=== PATIENT | male | born 1985 | race Caucasian/White ===

== ENCOUNTER 2020-02-20 15:56 | Emergency (ER) | payer OTHER ==
[~2020-02-20] VITALS: Ht 185.4 cm; Wt 74.8 kg
== END 2020-02-20 17:43 | disposition home or self-care (01) ==
LOC: ED 15:56
DX: S63.92XA Sprain of unspecified part of left wrist and hand, initial encounter (principal); F17.200 Nicotine dependence, unspecified, uncomplicated; W18.30XA Fall on same level, unspecified, initial encounter
CPT/HCPCS: 29125; 73110; 73130; 99283-25

== ENCOUNTER 2020-02-20 22:33 | Emergency (ER) | payer OTHER ==
[~2020-02-20] VITALS: Ht 185.4 cm; Wt 74.8 kg
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
--- OUTSIDE RECORDS SUMMARY | ~2020-02-20 | XMS | Clinical Summary ---
Demographics + + + | Address | [address] | | | [place] [address] | + + + | Home Phone | | + + + | Preferred Language | Unknown | + + + | Marital Status | Single | + + + | Shinto Affiliation | 1013 | + + + | Race | Unknown | + + + | Ethnic Group | Unknown | + + + Author + + + | Author | [facility] | | | and [place] | + + + | Organization | [facility] | | | and [place] | + + + | Address | Unknown | + + + | Phone | Unavailable | + + + Support + + + + + | Name | Relationship | Address | Phone | + + + + + | Jourdan Sandoval | ECON | [address] | | | | | [place] [address] | | + + + + + Care Team Providers + +------+ + | Care Cake Tester Name | Role | Phone | + +------+ + | No, Physician | PCP | Unavailable | + +------+ + Allergies Not on File Medications Not on file Active Problems Not on file Social History + +-------+ +--------+------+ | Tobacco [...] recent travel history available. 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
--- OUTSIDE RECORDS SUMMARY | ~2020-02-20 | XMS | Encounter Summary ---
Demographics + + + | Address | [address] | | | [place] [address] | + + + | Home Phone | | + + + | Preferred Language | Unknown | + + + | Marital Status | Single | + + + | Shinto Affiliation | 1013 | + + + | Race | Unknown | + + + | Ethnic Group | Unknown | + + + Author + + + | Author | [facility] | | | and [place] | + + + | Organization | [facility] | | | and [place] | + + + | Address | Unknown | + + + | Phone | Unavailable | + + + Support + + + + + | Name | Relationship | Address | Phone | + + + + + | Jourdan Sandoval | ECON | [address] | | | | | [place] [address] | | + + + + + Care Team Providers + +------+ + | Care Registration Clerk Name | Role | Phone | + +------+ + PCP | Unavailable | + +------+ + Encounter Details +--------+ + + + + | Date | Type | Department | Care Team | Description | +--------+ + + + + | 12/29/ | Hospital | [facility] | Denise Roca | | | 2012 | Encounter | MED CTR EMERGENCY | [address] | | | | | CENTER [address] | [facility], | | | | | [place] | [place] [address] | | | | | [address] | [phone] | | | | | [phone] | | | +--------+ + + + [...] Performed At | + + + | [facility] | [place] | | Department [address] [place] | [facility] | | [ rep [address]] [ rep [facility] | | st zip] Signed | - IMAGING | | | | | Patient Name: RAMÍREZ SANDOVAL Physician: | | | POOLR.01 : 1985 Age: 27 Sex: M Unit #: [id number] | | | Exam Date: 12/29/12 Location: ER | | | Report #: [id number] Page: | | | %(RAD)RES..mtdd.print.filter("pg") of %(RAD) | | | RES..mtdd.print.filter("tpg") | | | | | | Accession Number: [id number] | | | RIGHT FINGER THREE VIEW [...] Transcribed | | | Date/Time: 12/30/2012 07:54 Electrical Wirer: | | | <<Signature on File>> | | | Gilmar | | | Charleen Jon MD12/30/12 0836 <Electronically signed by Gilmar Jaimes | Fiona Jon MD> Gilmar Jon MD 12/30/12 0740 | | | Electrical Wirer: Garcia Lprfclzdpjvcv96/04/13 0754 | | | Denise Roca MD | | + + + + + + + + | Performing | Address | City/State/Zipcode | Phone Number | | Organization | | | | + + + + + | [facility] | [address] | [place], [place] | [phone] | | [facility] | | [address] | | | - IMAGING | | | | + + + + + XR Ankle Right 3 + Vw (12/30/2012 7:38 AM PDT) + + | Specimen | + + | | + + + + + | Narrative | Performed At | + + + | [facility] | [place] | | Department [address] [facility] [place] | [facility] | | [ rep ct [address]] [ rep ct [facility] | | st zip] Signed | - IMAGING | | | | | Patient Name: RAMÍREZ SANDOVAL Physician: | | | POOLR.01 : 1985 Age: 27 Sex: M Unit #: [id number] | | | Exam Date: 12/29/12 Location: ER | | | Report #: [id number] Page: | | | %(RAD)RES..mtdd.print.filter("pg") of %(RAD) | | | RES..mtdd.print.filter("tpg") | | | | | | Accession Number: [id number] | | | RIGHT ANKLE THREE VIEW [...] Transcribed Date/Time: | | | 12/30/2012 07:50 Electrical Wirer: CJ | | | <<Signature on File>> | | | Gilmar | | | Charleen Jon MD12/30/12 0832 <Electronically signed by Gilmar Jon MD> Gilmar Jon MD 12/30/12 0738 | | | Electrical Wirer: Garcia Jkfvcnemittks92/04/13 0750 | | | Denise Roca MD | | + + + + + + + + | Performing | Address | City/State/Zipcode | Phone Number | | Organization | | | | + + + + + | [facility] | [address] | [place] | [phone] | | [facility] | | [address] | | | - IMAGING | | | | + + + + + documented in this encounter Visit Diagnoses Not on filedocumented in this encounter
--- OUTSIDE RECORDS SUMMARY | ~2020-02-20 | XMS | Clinical Summary ---
Demographics + + + | Address | [address] | | | [place] [address] | + + + | Home Phone | | + + + | Preferred Language | Unknown | + + + | Marital Status | Single | + + + | Adventist Affiliation | 1013 | + + + | Race | Unknown | + + + | Ethnic Group | Unknown | + + + Author + + + | Author | [facility] | | | and [place] | + + + | Organization | 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
--- OUTSIDE RECORDS SUMMARY | 2020-02-20 22:36 | XMS ---
PreManage Notification: RAMÍREZ ROE Security It Coordinator Events No recent Security Events currently on file CRITERIA MET - [facility] - 2 Visits in 30 Days CARE PROVIDERS There are no care providers on record at this time. Kenneth has no Care Guidelines for this patient. [place] [facility]12 MO.) [facility] NOTE: Visits indicate total known visits. ED/C VISIT TRACKING (12 MO.) 02/20/2020 22:34 [facility] [place] TYPE: Emergency COMPLAINT: - WRIST INJURY/PAIN 02/20/2020 15:58 [facility] [place] TYPE: Emergency COMPLAINT: - LEFT HAND PAIN INPATIENT VISIT TRACKING (12 MO.) No inpatient visits to display in this time frame [email or web address]
== END 2020-02-20 23:14 | disposition home or self-care (01) ==
LOC: ED 22:33
DX: M25.532 Pain in left wrist (principal)

== ENCOUNTER 2024-11-11 15:23 | Emergency (ER) | payer OTHER ==
[~2024-11-11] VITALS: Ht 185.4 cm; Wt 78.0 kg
[2024-11-11] MEDS ORDERED: LIDOCAINE & ANTACID 35 ML BTL PO ONE (16:00)
[2024-11-11 16:01] LABS: BASOPHILS 0.7 % (0-2); EOSINOPHILS 1.2 % (0-6); HEMATOCRIT 42.8 % (35.0-50.0); HEMOGLOBIN 14.6 g/dL (12.0-18.0); LYMPHOCYTES 12.9 % (24-44); MCH 32.2 (27-36); MCV 94.8 fl (81-99); NEUTROPHILS 78.2 % (39-80); PLATELET COUNT 493 K/uL (140-440); RBC 4.52 M/ul (4.3-5.7); RDW 13.6 (10.5-15.0)
[2024-11-11 16:20] LABS: ALBUMIN 3.7 g/dL (3.4-5.0); ALBUMIN/GLOBULIN RATIO 0.97 (1.1-2.4); ALKALINE PHOSPHATASE 151 U/L (46-116); ALT (SGPT) 21 U/L (14-59); ANION GAP 13.7 (7-21); AST (SGOT) 18 U/L (15-37); BILIRUBIN, TOTAL 0.8 mg/dL (0.2-1.0); BUN/CREATININE RATIO 8.82 (6.0-28.6); CALCIUM 9.2 mg/dL (8.5-10.1); CARBON DIOXIDE 28 mmol/L (21-32); CHLORIDE 100 mmol/L (98-107); CREATININE, SERUM 0.68 mg/dL (0.70-1.30); GLOMERULAR FILTRATION RATE,EST 121 mL/min (>60); POTASSIUM 3.7 mmol/L (3.5-5.1); PROTEIN, TOTAL 7.5 g/dL (6.4-8.2); UREA NITROGEN 6 mg/dL (7-18)
[2024-11-11] MEDS ORDERED: SODIUM CHLORIDE 0.9% 1,000 ML IV PRN (16:45)
[2024-11-11] MEDS ORDERED: MORPHINE SULFATE 4 MG/ML VIAL IV ONE (16:45)
[2024-11-11] MEDS ORDERED: HYDROCODONE/APAP 10/325 1 TAB PO ONE (18:00)
[2024-11-11 18:21] VITALS: BP 146/93
== END 2024-11-11 18:22 | disposition home or self-care (01) ==
LOC: ED 15:23
PROVIDERS: Emergency Medicine
DX: K85.90 Acute pancreatitis without necrosis or infection, unspecified (principal); K86.89 Other specified diseases of pancreas; F17.210 Nicotine dependence, cigarettes, uncomplicated; Z79.899 Other long term (current) drug therapy
CPT/HCPCS: 36415; 71045; 76705; 80053; 83690; 84484; 85025; 93005; 93010; 96374; 99285-25; A9270; G0480; J2270; J7030

== ENCOUNTER 2024-12-26 10:16 | Emergency (ER) | payer OTHER ==
[~2024-12-26] VITALS: Ht 185.4 cm; Wt 75.5 kg
[~2024-12-26 10:16] MED LIST: DOXYCYCLINE HY100 M3 PO; GABAPENTIN300 MG PO; HYDROCODON-ACE1 EA10 PO; METRONIDAZOLE60 GM TOP; ONDANSETRON ODT4 MG PO; PRAZOSIN HCL1 MG PO
[2024-12-26] MEDS ORDERED: ALBUTEROL/IPRATROPIUM 3 ML NEB INH PRN (16:00)
[2024-12-26 16:26] LABS: BASOPHILS 0.7 % (0-2); EOSINOPHILS 2.3 % (0-6); HEMATOCRIT 50.1 % (35.0-50.0); HEMOGLOBIN 16.7 g/dL (12.0-18.0); LYMPHOCYTES 9.4 % (24-44); MCHC 33.4 g/dl (30-36); MCV 89.8 fl (81-99); MONOCYTES 8.7 % (0-12); NEUTROPHILS 78.9 % (39-80); PLATELET COUNT 495 K/uL (140-440); RBC 5.58 M/ul (4.3-5.7); RDW 14.3 (10.5-15.0)
[2024-12-26] MEDS ORDERED: FLUOXETINE HCL10 MG PO (16:29)
[2024-12-26] MEDS ORDERED: ARIPIPRAZOLE2 MG (16:30)
[2024-12-26 16:47] LABS: ALBUMIN 3.6 g/dL (3.4-5.0); ALBUMIN/GLOBULIN RATIO 0.92 (1.1-2.4); ANION GAP 22.4 (7-21); BILIRUBIN, TOTAL 0.9 mg/dL (0.2-1.0); CALCIUM 9.4 mg/dL (8.5-10.1); CREATININE, SERUM 0.7 mg/dL (0.70-1.30); MAGNESIUM 1.8 mg/dL (1.8-2.4); POTASSIUM 4.4 mmol/L (3.5-5.1); PROTEIN, TOTAL 7.5 g/dL (6.4-8.2)
[2024-12-26] MEDS ORDERED: HYDROmorphone HCL 1 MG/ML SYR IV ONE (19:30)
[2024-12-26] MEDS ORDERED: MIDAZOLAM HCL 2 MG/2 ML VIAL IV ONE ×2 (19:30→20:00)
[2024-12-26] MEDS ORDERED: MORPHINE SULFATE 4 MG/ML VIAL IV ONE (19:45)
[2024-12-26] MEDS ORDERED: CEFTRIAXONE SODIUM 1 GM in SODIUM CHLORIDE 0.9% 100 ML IV SCH (20:00)
[2024-12-26] MEDS ORDERED: ondansetron HCL 4 MG/2 ML VIAL IV PRN (20:00)
[2024-12-26] MEDS ORDERED: ACETAMINOPHEN 325 MG TAB PO PRN (20:00)
[2024-12-26] MEDS ORDERED: AZITHROMYCIN 250 MG TAB PO SCH (20:00)
[2024-12-26 20:23] LABS: BASE EXCESS, BLOOD GAS -7.2 mmol/L (-2-2); O2 SATURATION, BLOOD GAS 65.1 % (95.0-100.0); OXYGEN RECEIVED, BLOOD GAS 100%; PCO2, BLOOD GAS 47.2 mmHg (35-45); PH, BLOOD GAS 7.24 (7.35-7.45); PO2, BLOOD GAS 41 mmHg (80-100); TOTAL CO2, BLOOD GAS 21.4
[2024-12-26] MEDS ORDERED: propofoL 100 ML IV ONE (20:28)
[2024-12-26] MEDS ORDERED: FENTANYL CITRATE-0.9 % NACL/PF 100 ML IV SCH (20:55)
[2024-12-26] MEDS ORDERED: FENTANYL CITRATE-0.9 % NACL/PF 100 ML IV ONE (20:56)
[2024-12-26] MEDS ORDERED: MELATONIN 3 MG TAB PO PRN (21:00)
[2024-12-26 21:28] LABS: PH, BODY FLUID 7.48
[2024-12-26 21:40] LABS: BASE EXCESS, BLOOD GAS -11.9 mmol/L (-2-2); HCO3, BLOOD GAS 18.1 mmol/L (22-26); O2 SATURATION, BLOOD GAS 99.4 % (95.0-100.0); OXYGEN RECEIVED, BLOOD GAS 100%; PCO2, BLOOD GAS 57.6 mmHg (35-45); PH, BLOOD GAS 7.11 (7.35-7.45); PO2, BLOOD GAS 178 mmHg (80-100); TOTAL CO2, BLOOD GAS 19.8
[2024-12-26 21:41] LABS: BASOPHILS 0.7 % (0-2); EOSINOPHILS 1.3 % (0-6); HEMATOCRIT 52.9 % (35.0-50.0); HEMOGLOBIN 17.4 g/dL (12.0-18.0); LYMPHOCYTES 7.6 % (24-44); MCHC 32.9 g/dl (30-36); MCV 91.1 fl (81-99); MONOCYTES 6.6 % (0-12); NEUTROPHILS 83.8 % (39-80); PLATELET COUNT 471 K/uL (140-440); RDW 14.6 (10.5-15.0)
[2024-12-26] MEDS ORDERED: methylPREDNISolone SOD SUCC 125 MG/2 ML VIAL IV ONE (21:45)
[2024-12-26] MEDS ORDERED: propofoL 100 ML IV SCH (21:45)
[2024-12-26 21:50] LABS: ALBUMIN 2.8 g/dL (3.4-5.0); ALBUMIN/GLOBULIN RATIO 0.8 (1.1-2.4); ANION GAP 19.1 (7-21); BILIRUBIN, TOTAL 0.6 mg/dL (0.2-1.0); BUN/CREATININE RATIO 13.2 (6.0-28.6); CALCIUM 8.1 mg/dL (8.5-10.1); CREATININE, SERUM 0.53 mg/dL (0.70-1.30); POTASSIUM 4.1 mmol/L (3.5-5.1); PROTEIN, TOTAL 6.3 g/dL (6.4-8.2)
[2024-12-26] MEDS ORDERED: OCTREOTIDE ACETATE 100 MCG/ML VIAL ONE (22:03)
[2024-12-26] MEDS ORDERED: ACETAMINOPHEN 1,000 MG/100 ML VIAL IV ONE (22:15)
[2024-12-26] MEDS ORDERED: OCTREOTIDE ACETATE 100 MCG/ML VIAL SUB-Q ONE (22:15)
[2024-12-26 22:25] LABS: MONONUCLEAR CELLS, BODY FLUID 86; PMNS, BODY FLUID 14; RBC, BODY FLUID 55500; SOURCE, BODY FLUID Pleural fluid; WBC, BODY FLUID 500
[2024-12-26] MEDS ORDERED: DEXTROSE 5% IV SCH (22:45)
[2024-12-26] MEDS ORDERED: ROCURONIUM BROMIDE IV SCH (22:45)
[2024-12-26] MEDS ORDERED: PIPERACILLIN/TAZOBACTAM 3.375 GM in SODIUM CHLORIDE 0.9% 100 ML IV ONE (23:15)
[2024-12-27] MEDS ORDERED: LACTATED RINGER'S 1,000 ML IV ONE
[2024-12-27] MEDS ORDERED: NOREPINEPHRINE BITARTRATE 250 ML IV ONE (00:13)
[2024-12-27] MEDS ORDERED: NOREPINEPHRINE BITARTRATE 250 ML IV SCH (00:30)
[2024-12-27 00:39] LABS: INFLUENZA B NAA NEGATIVE (NEGATIVE); RESPIRATORY SYNCYTIAL VIR NAA NEGATIVE (NEGATIVE)
[2024-12-27] MEDS ORDERED: ETOMIDATE 40 MG/20 ML VIAL IV ONE (00:45)
[2024-12-27] MEDS ORDERED: ROCURONIUM BROMIDE 50 MG/5 ML SYR IV ONE (00:45)
[2024-12-27 01:00] LABS: BASE EXCESS, BLOOD GAS -12.9 mmol/L (-2-2); HCO3, BLOOD GAS 18.5 mmol/L (22-26); O2 SATURATION, BLOOD GAS 95.2 % (95.0-100.0); PCO2, BLOOD GAS 63.2 mmHg (35-45); PH, BLOOD GAS 7.08 (7.35-7.45); PO2, BLOOD GAS 96 mmHg (80-100); TOTAL CO2, BLOOD GAS 20.5
[2024-12-27 01:01] LABS: OXYGEN RECEIVED, BLOOD GAS 100%
[2024-12-27] MEDS ORDERED: VANCOMYCIN HCL IV ONE (01:15)
[2024-12-27] MEDS ORDERED: VANCOMYCIN HCL 2,750 MG in DEXTROSE 5% 500 ML IV ONE (01:15)
[2024-12-27] MEDS ORDERED: DEXTROSE 5% IV ONE (01:15)
[2024-12-27 03:05] LABS: BASE EXCESS, BLOOD GAS -14.1 mmol/L (-2-2); HCO3, BLOOD GAS 17.2 mmol/L (22-26); O2 SATURATION, BLOOD GAS 88.3 % (95.0-100.0); OXYGEN RECEIVED, BLOOD GAS 100%; PCO2, BLOOD GAS 60.4 mmHg (35-45); PH, BLOOD GAS 7.07 (7.35-7.45); PO2, BLOOD GAS 71 mmHg (80-100)
[2024-12-27 04:08] LABS: ALBUMIN/GLOBULIN RATIO 0.63 (1.1-2.4); ANION GAP 17.8 (7-21); BILIRUBIN, TOTAL 0.6 mg/dL (0.2-1.0); BUN/CREATININE RATIO 8.59 (6.0-28.6); CALCIUM 7.2 mg/dL (8.5-10.1); CREATININE, SERUM 1.28 mg/dL (0.70-1.30); PROTEIN, TOTAL 5.2 g/dL (6.4-8.2)
[2024-12-27 04:13] LABS: POTASSIUM 6.8 mmol/L (3.5-5.1)
[2024-12-27] MEDS ORDERED: ALBUTEROL SULFATE 0.5% 2.5 MG/0.5 ML VIAL INH ONE (04:15)
[2024-12-27] MEDS ORDERED: CALCIUM GLUCONATE 1,000 MG/10 ML VIAL IV ONE (04:15)
[2024-12-27] MEDS ORDERED: DEXTROSE 50% 50 ML SYR IV ONE (04:15)
[2024-12-27] MEDS ORDERED: Insulin Regular, Human 100 UNIT/ML ML IV ONE (04:15)
[2024-12-27] MEDS ORDERED: SODIUM BICARBONATE 150 MEQ in DEXTROSE 5% 1,000 ML IV SCH (04:30)
[2024-12-27] MEDS ORDERED: SODIUM CHLORIDE 0.9% 1,000 ML IV PRN (04:30)
[2024-12-27 06:26] LABS: BASE EXCESS, BLOOD GAS -14.2 mmol/L (-2-2); HCO3, BLOOD GAS 18.6 mmol/L (22-26); O2 SATURATION, BLOOD GAS 83.3 % (95.0-100.0); PCO2, BLOOD GAS 71.3 mmHg (35-45); PH, BLOOD GAS 7.02 (7.35-7.45); TOTAL CO2, BLOOD GAS 20.8
[2024-12-27] MEDS ORDERED: PIPERACILLIN/TAZOBACTAM 3.375 GM in SODIUM CHLORIDE 0.9% 100 ML IV ONE (06:30)
[2024-12-27] MEDS ORDERED: methylPREDNISolone SOD SUCC 125 MG/2 ML VIAL IV ONE (06:30)
[2024-12-27 06:57] LABS: RDW 15.1 (10.5-15.0)
[2024-12-27 07:01] LABS: HEMATOCRIT 55.6 % (35.0-50.0); HEMOGLOBIN 17.5 g/dL (12.0-18.0); MCH 29.3 (27-36); MCHC 31.4 g/dl (30-36); MCV 93.3 fl (81-99); PLATELET COUNT 393 K/uL (140-440); RBC 5.96 M/ul (4.3-5.7)
[2024-12-27 07:08] LABS: ALBUMIN 1.9 g/dL (3.4-5.0); ALBUMIN/GLOBULIN RATIO 0.56 (1.1-2.4); ANION GAP 13.5 (7-21); BILIRUBIN, TOTAL 0.4 mg/dL (0.2-1.0); BUN/CREATININE RATIO 8.52 (6.0-28.6); CREATININE, SERUM 1.29 mg/dL (0.70-1.30); MAGNESIUM 1.7 mg/dL (1.8-2.4); PHOSPHORUS, INORGANIC 6.5 mg/dL (2.5-4.9); POTASSIUM 5.5 mmol/L (3.5-5.1); PROTEIN, TOTAL 5.3 g/dL (6.4-8.2)
[2024-12-27 07:19] LABS: BANDS, MANUAL DIFF 4; LYMPHOCYTES, MANUAL DIFF 2; MONOCYTES, MANUAL DIFF 1; NEUTROPHILS, MANUAL DIFF 93
[2024-12-27] MEDS ORDERED: ALBUTEROL/IPRATROPIUM 3 ML NEB INH ONE (07:45)
[2024-12-27 08:47] LABS: BASE EXCESS, BLOOD GAS -12.1 mmol/L (-2-2); HCO3, BLOOD GAS 19.4 mmol/L (22-26); O2 SATURATION, BLOOD GAS 86.9 % (95.0-100.0); PCO2, BLOOD GAS 67.2 mmHg (35-45); PH, BLOOD GAS 7.07 (7.35-7.45); TOTAL CO2, BLOOD GAS 21.5
[2024-12-27] MEDS ORDERED: INSULIN REGULAR IN 0.9 % NACL 100 ML IV SCH (09:00)
[2024-12-27 10:18] VITALS: BP 100/74
[2024-12-27] MEDS ORDERED: PHARMACY RENAL DOSE ADJUSTMENT 1 DOSE MISC PO SCH (12:00)
--- NOTE | 2024-12-27 12:15 | EKG ---
[facility] [address] [facility] [place], [place] [address] Signed Sinus tachycardia Otherwise normal ECG When compared with ECG of 11-NOV-2024 15:28, No significant change was found Confirmed by Ousmane Heard DO ([id number]) on 12/27/2024 12:15:29 PM Electronically Signed By: OUSMANE HEARD DO 12/27/24 1215 PATIENT NAME: RAMÍREZ ROE LORENE Electrocardiogram DATE OF : [birth year] PHYSICIAN: OUSMANE HEARD DO REPORT #: [id number] REPORT IS CONFIDENTIAL AND NOT TO BE RELEASED WITHOUT AUTHORIZATION
--- NOTE | 2024-12-27 12:16 | EKG ---
[facility] [address] [facility] [place], [place] [address] Signed Sinus tachycardia Left ventricular hypertrophy with repolarization abnormality ( Ivonne Cohn ) Cannot rule out Septal infarct , age undetermined Abnormal ECG No previous ECGs available Confirmed by Ousmane Heard DO ([id number]) on 12/27/2024 12:16:05 PM Electronically Signed By: OUSMANE HEARD DO 12/27/24 1216 PATIENT NAME: RAMÍREZ ROE LORENE Electrocardiogram DATE OF : [birth year] PHYSICIAN: OUSMANE HEARD DO REPORT #: [id number] REPORT IS CONFIDENTIAL AND NOT TO BE RELEASED WITHOUT AUTHORIZATION
[2024-12-28 11:02] LABS: ADENOSINE DEAMINASE,PLEURAL FL 10 U/L (0-30)
[2024-12-28 11:13] LABS: AMYLASE FLUID SOURCE Pleural fluid (()); AMYLASE, BODY FLUID 19796 U/L (()); GLUCOSE FLUID SOURCE Pleural fluid (()); GLUCOSE,BODY FLUID 63 mg/dL (()); LACTATE DEHYDROGENASE TOTAL,BF 537 U/L (()); LDH FLUID SOURCE Pleural fluid (()); TOTAL PROTEIN FLUID SOURCE Pleural fluid (()); TOTAL PROTEIN, BODY FLUID 3.4 g/dL (())
[2024-12-28 13:12] LABS: OSMOLALITY 283 mOsm/kg (280-303)
== END 2024-12-27 09:25 | disposition short-term general hospital (02) ==
LOC: ED 10:16
PROVIDERS: Emergency Medicine; Internal Medicine; Student in an Organized Health Care Education/Training Program
DX: J96.90 Respiratory failure, unspecified, unspecified whether with hypoxia or hypercapnia (principal); J90 Pleural effusion, not elsewhere classified; J18.9 Pneumonia, unspecified organism; A41.9 Sepsis, unspecified organism; R65.20 Severe sepsis without septic shock; F17.200 Nicotine dependence, unspecified, uncomplicated
CPT/HCPCS: 31500; 32554; 36415; 36556; 36600; 36620; 71045; 71250; 71260; 74178; 80053; 82150; 82550; 82803; 82945; 83605; 83690; 83735; 83880; 83930; 83986; 84100; 84157; 84478; 84484; 85025; 85060; 87070; 87075; 87205; 87502; 89051; 93005; 93010; 94640; 94799; 99285-25; A4311; J0131; J0612; J1171; J1815; J2250; J2270; J2354-JA; J2543; J2704; J2919; J3010; J3370; J3490; J7030; J7060; J7070; J7121; Q9967; U0002

== ENCOUNTER 2025-04-01 18:05 | Emergency (ER) | payer OTHER ==
[~2025-04-01] VITALS: Ht 185.4 cm; Wt 82.2 kg
[~2025-04-01 18:05] MED LIST changes: +ARIPIPRAZOLE2 MG; +FLUOXETINE HCL10 MG PO
[2025-04-01] MEDS ORDERED: ELIQUIS5 MG PO (18:24)
[2025-04-01] MEDS ORDERED: ACETAMINOPHEN 500 MG TAB PO ONE (19:15)
[2025-04-01 19:36] VITALS: BP 125/77
== END 2025-04-01 19:38 | disposition home or self-care (01) ==
LOC: ED 18:05
DX: M23.92 Unspecified internal derangement of left knee (principal); F17.200 Nicotine dependence, unspecified, uncomplicated; Z88.8 Allergy status to other drugs, medicaments and biological substances; Z79.899 Other long term (current) drug therapy; Z79.01 Long term (current) use of anticoagulants; V89.2XXA Person injured in unspecified motor-vehicle accident, traffic, initial encounter
CPT/HCPCS: 73560; 99284; A9270